=== PATIENT | male | born 1940 | race Caucasian/White ===

== ENCOUNTER 2020-05-12 07:41 | Day surgery (SDC) | payer MEDICARE, BC ==
[~2020-05-12 07:41] MED LIST: Bupivacaine 0.5% 10 ML SDV ONE; Heparin Sodium 100 Units/ML 3 ML Syringe ONE; Lactated Ringers 1,000 ML IV SCH; ceFAZolin 2 GM in Premix Bag 1 BAG IV SCH
--- NOTE | 2020-05-12 08:20 | PCM.PREANE ---
Preanesthetic Assessment - Anesthesia/Transfusion/Family Hx Anesthesia History: Prior Anesthesia Without Reaction Family History of Anesthesia Reaction: No Transfusion History: No Prior Transfusion(s) Intubation History: Unknown - Review of Systems General: No Symptoms Pulmonary: No Symptoms Cardiovascular: No Symptoms Gastrointestinal: No Symptoms Neurological: No Symptoms Other: Reports: None - Physical Assessment Vital Signs: Last Vital Signs Temp 36.3 C 05/12/20 07:57 Pulse 58 L 05/12/20 07:57 Resp 16 05/12/20 07:57 BP 128/69 05/12/20 07:57 Pulse Ox 94 L 05/12/20 07:57 Height: 6 ft 1 in Weight: 83.915 kg ASA Class: 3 Mental Status: Alert & Oriented x3 Airway Class: Mallampati = 2 Dentition: Reports: Normal Dentition, Kennett(s) (multiple crowns including upper front) Thyro-Mental Finger Breadths: 3 Mouth Opening Finger Breadths: 3 ROM/Head Extension: Limited/Partial Lungs: Normal Respiratory Effort, Decreased Breath Sounds Cardiovascular: Regular Rate, Regular Rhythm - Allergies Allergies/Adverse Reactions: Allergies Allergy/AdvReac Type Severity Reaction Status Date / Time No Known Allergies Allergy Verified 05/12/20 08:15 - Blood Blood Available: No - Anesthesia Plan Pre-Op Medication Ordered: None - Acknowledgements Anesthesia Type Planned: General Anesthesia Pt an Appropriate Candidate for the Planned Anesthesia: Yes Alternatives and Risks of Anesthesia Discussed w Pt/Guardian: Yes Pt/Guardian Understands and Agrees with Anesthesia Plan: Yes PreAnesthesia Questionnaire HEENT History: Reports: Impaired Vision Other HEENT History: wears glasses Cardiovascular History: Reports: High Cholesterol, Hypertension Respiratory History: Reports: COPD Gastrointestinal History: Reports: None Genitourinary History: Reports: None Musculoskeletal History: Reports: Arthritis Neurological History: Reports: None Psychiatric History: Reports: Depression Endocrine/Metabolic History: Reports: None Hematologic History: Reports: None Immunologic History: Reports: None Oncologic (Cancer) History: Reports: Hodgkin's Lymphoma Dermatologic History: Reports: Psoriasis - Infectious Disease History Infectious Disease History: Reports: Other (See Below) Other Infectious Disease History: tested positive for COVID in 2019 with pneumonia - didn't need oxygen therapy - Past Surgical History Head Surgeries/Procedures: Reports: None HEENT Surgical History: Reports: Cataract Surgery, Tonsillectomy Other HEENT Surgeries/Procedures: both eyes Cardiovascular Surgical History: Reports: None GI Surgical History: Reports: None Male Surgical History: Reports: None Endocrine Surgical History: Reports: None Musculoskeletal Surgical History: Reports: Other (See Below) Other Musculoskeletal Surgeries/Procedures:: had lower back surgery aprox. 15 yrs ago Oncologic Surgical History: Reports: Other (See Below) Other Oncologic Surgeries/Procedures: had a cervical lymph node biopsy - SUBSTANCE USE Tobacco Use Status *Q: Former Tobacco User - HOME MEDS Home Medications: Home Meds Ascorbate Calcium [Vitamin C] 1 tab PO ASDIRECTED 05/08/20 [History] Aspirin 1 tab PO ASDIRECTED 05/08/20 [History] Fluticasone Propionate [Flovent] 1 spray LLOYD ASDIRECTED 05/08/20 [History] Fluticasone/Umeclidin/Vilanter [Trelegy Ellipta 100-62.5-25] 1 dose INH ASDIRECTED 05/08/20 [History] Lysine HCl [l-Lysine] 1 tab PO ASDIRECTED 05/08/20 [History] Metoprolol Succinate 1 tab PO ASDIRECTED 05/08/20 [History] Simvastatin 1 tab PO DAILY 05/08/20 [History] - CURRENT (IN HOUSE) MEDS Current Meds: Current Medications Cefazolin Sodium/Dextrose 2 gm (/ Premix) 50 mls @ 100 mls/hr IV ONETIME NEGRITA Lactated Ringer's (Ringers, Lactated) 1,000 mls @ 125 mls/hr IV ASDIRECTED NEGRITA Last Admin: 05/12/20 08:04 Dose: 125 mls/hr Documented by: Discontinued Medications Bupivacaine HCl (Sensorcaine-Mpf 0.5%) Confirm Administered Dose 10 ml .ROUTE .STK-MED ONE Stop: 05/12/20 07:20 Heparin Sodium (Porcine) (Heparin Lock Flush 100 Units/Ml) Confirm Administered Dose 900 unit .ROUTE .STK-MED ONE Stop: 05/12/20 07:20 Lidocaine HCl (Xylocaine-Mpf 1%) Confirm Administered Dose 10 ml .ROUTE .STK-MED ONE Stop: 05/12/20 07:20
[2020-05-12] MEDS ORDERED: fentaNYL 100 MCG/2 ML SDV ONE (08:35)
[2020-05-12] MEDS ORDERED: Propofol 200 MG/20 ML SDV ONE ×4 (08:35→10:54)
[2020-05-12] MEDS ORDERED: ceFAZolin/Dextrose,Iso-Osmotic 2 GM/50 ML Duplex Bag (Premix) IV ONE (09:43)
[2020-05-12] MEDS ORDERED: Acetaminophen/HYDROcodone 325-10 MG Tab PO PRN (11:36)
--- NOTE | 2020-05-12 11:40 | PCM.OPNOTE ---
- General Post-Op/Procedure Note Date of Surgery/Procedure: 05/12/20 Operative Procedure(s): Placement of Bard port via left cephalic vein approach Pre Op Diagnosis: Hodgkin's lymphoma, both above and below the diaphragm Post-Op Diagnosis: Same Anesthesia Technique: Local, MAC (ASA III) Primary Surgeon: Alec Cui Condition: Good Free Text/Narrative:: DICTATION 229257 CPT CODE 13077 Post insertion chest x-ray shows good placement of the catheter in the superior vena cava.
[2020-05-12] MEDS ORDERED: Lactated Ringers 1,000 ML IV SCH (11:45)
--- NOTE | 2020-05-12 11:56 | CR ---
Indication: Port placement Technique: Chest 1 view Comparison: None. Findings/Impression: Cardiovascular and mediastinum: Left-sided port catheter is present and is in satisfactory position with the distal tip in the mid SVC. Heart size and pulmonary vasculature are normal. Lungs and pleural space: Lungs are clear. No sign of infiltrate or mass. No sign of pleural effusion. No pneumothorax. Bones and soft tissues: No acute findings. Dictated by Hemal Casillas MD @ May 12 2020 11:54AM Signed by Dr. Hemal Casillas @ May 12 2020 11:55AM
[2020-05-12] MEDS ORDERED: Heparin Sodium 100 Units/ML 3 ML Syringe ONE (12:18)
--- NOTE | 2020-05-12 12:53 | PCM48HPAN ---
Post Anesthesia Note - EVALUATION WITHIN 48HRS OF ANESTHETIC Vital Signs in Normal Range: Yes Patient Participated in Evaluation: Yes Respiratory Function Stable: Yes Airway Patent: Yes Cardiovascular Function Stable: Yes Hydration Status Stable: Yes Pain Control Satisfactory: Yes Nausea and Vomiting Control Satisfactory: Yes Mental Status Recovered: Yes Vital Signs: Last Vital Signs Temp 36.1 C 05/12/20 11:16 Pulse 56 L 05/12/20 11:43 Resp 15 05/12/20 11:43 BP 106/55 L 05/12/20 11:43 Pulse Ox 91 L 05/12/20 11:43 - COMMENTS/OBSERVATIONS Free Text/Narrative:: No anesthesia problems
--- NOTE | 2020-05-12 12:54 | PCM.POSTAN ---
POST ANESTHESIA ASSESSMENT - MENTAL STATUS Mental Status: Alert, Oriented - VITAL SIGNS Vital Signs: Last Vital Signs Temp 36.1 C 05/12/20 11:16 Pulse 56 L 05/12/20 11:43 Resp 15 05/12/20 11:43 BP 106/55 L 05/12/20 11:43 Pulse Ox 91 L 05/12/20 11:43 - RESPIRATORY Respiratory Status: Respiratory Rate WNL, Airway Patent, O2 Saturation Stable - CARDIOVASCULAR CV Status: Pulse Rate WNL, Blood Pressure Stable - GASTROINTESTINAL GI Status: No Symptoms - PAIN Pain Score: 0 - POST OP HYDRATION Hydration Status: Adequate & Stable - OBSERVATIONS Free Text/Narrative:: No anesthesia problems
--- NOTE | 2020-05-12 15:49 | CR ---
INDICATION: Port placement TECHNIQUE: Intraoperative C-arm fluoroscopy. IMPRESSION: Intraoperative C-arm fluoroscopy was provided. Fluoroscopy time 50 seconds. Two images were captured. Dictated by Stef Townsend MD @ May 12 2020 3:46PM Signed by Dr. Stef Townsend @ May 12 2020 3:47PM
--- NOTE | 2020-05-13 10:52 | OR ---
SURGEON: Alec Cui M.D. DATE OF PROCEDURE: 05/12/2020 OPERATION PERFORMED: Placement of Bard port via left cephalic vein. PRIMARY SURGEON: Alec Cui M.D. ANESTHESIA: Local MAC. ASA CLASSIFICATION: III. PREOPERATIVE DIAGNOSIS: Hodgkin lymphoma. POSTOPERATIVE DIAGNOSIS: Hodgkin lymphoma. ESTIMATED BLOOD LOSS: 10 mL. INTRAOPERATIVE FLUID REPLACEMENT: 700 mL of crystalloid. DESCRIPTION OF PROCEDURE: The patient was taken to the operating room, placed on the operating table in the supine position. Surgical site had been marked prior to the patient entering the operating room. Time-out was called for appropriate identification of the patient and procedure. The surgical site was prepped with ChloraPrep, and sterile drapes were applied. It should be noted that fluoroscopy was used during this procedure. Incision was marked out in the left deltopectoral groove and infiltrated with 1% Xylocaine and 0.5% Marcaine solution. Skin incision was made and deepened through the subcutaneous tissue obtaining hemostasis with the use of electrocautery. Dissection was carried down to the left cephalic vein, which was of great quality. The vein was then encircled, ligated distally with 2-0 Vicryl and with 2 extra ties placed proximally. Once that was accomplished, a small venotomy was made, and the heparin flushed catheter was placed fluoroscopically into the superior vena cava. The 2 proximal ties of 2-0 Vicryl were then secured to keep the catheter from migrating. The catheter was positioned at 26 cm from the venotomy site. Appropriate site on the chest wall was then chosen for placement of the port. The skin was again infiltrated with 1% Xylocaine and 0.5% Marcaine solution. Skin incision was made and again using electrocautery deepened to the pectoralis major fascia. Subcutaneous pocket was then made with blunt dissection. The catheter was then passed with the use of the trocar from the deltopectoral incision to the chest wall incision. Care was taken to avoid an air embolus. Once that was accomplished, the port which had been flushed with heparinized saline was brought to the operating table. The catheter was cut to appropriate length, and the catheter and port were assembled, and the lock secured. The catheter was then aspirated and irrigated with heparinized saline. There was good flow and no resistance to injection. Wounds were inspected for hemostasis, and small bleeding sites were electrocoagulated. Both incisions were closed in 2 layers approximating the subcutaneous tissue with 3-0 Vicryl and the skin with subcuticular 4-0 Monocryl. Both incisions were Steri-Stripped and dressed with sterile Tegaderm pads. Sponge, needle, and instrument counts were all correct. The patient tolerated the procedure well and was taken to recovery room in stable condition. Post insertion chest x-ray is pending. BEN / VINI /[id number]
== END 2020-05-12 12:53 | disposition home or self-care (01) ==
LOC: MW.SDS 07:41
PROVIDERS: ATTEND Surgery
DX: C81.90 Hodgkin lymphoma, unspecified, unspecified site (principal); J44.9 Chronic obstructive pulmonary disease, unspecified; E78.00 Pure hypercholesterolemia, unspecified; I10 Essential (primary) hypertension; Z79.82 Long term (current) use of aspirin; Z79.899 Other long term (current) drug therapy; Z87.891 Personal history of nicotine dependence; Z90.89 Acquired absence of other organs
CPT/HCPCS: 36561; 71045; 76000; C1788; J0690; J1642; J2001; J2704; J3010; J3490; J7120; 00400

== ENCOUNTER 2022-01-04 06:29 | Day surgery (SDC) | payer MEDICARE, BC ==
[~2022-01-04 06:29] MED LIST changes: -Bupivacaine 0.5% 10 ML SDV ONE; -Heparin Sodium 100 Units/ML 3 ML Syringe ONE; -ceFAZolin 2 GM in Premix Bag 1 BAG IV SCH
[2022-01-04] MEDS ORDERED: Dexmedetomidine 200 MCG/2 ML SDV ONE (07:23)
[2022-01-04] MEDS ORDERED: Propofol 200 MG/20 ML SDV ONE (07:24)
[2022-01-04] MEDS ORDERED: Water For Injection, Sterile 20 ML ONE (07:24)
[2022-01-04] MEDS ORDERED: fentaNYL 100 MCG/2 ML SDV ONE (07:24)
[2022-01-04] MEDS ORDERED: Lidocaine 1% 20 ML MDV ONE (07:29)
[2022-01-04] MEDS ORDERED: Bupivacaine 0.5% 30 ML SDV ONE (07:29)
[2022-01-04] MEDS ORDERED: ePHEDrine 50 MG/ML SDV ONE (08:09)
[2022-01-04] MEDS ORDERED: Ketorolac 30 MG/ML SDV ONE (08:26)
[2022-01-04] MEDS ORDERED: Lactated Ringers 1,000 ML IV SCH (08:45)
== END 2022-01-04 09:35 | disposition home or self-care (01) ==
LOC: MW.SDS 06:29
PROVIDERS: ATTEND Surgery
DX: Z45.2 Encounter for adjustment and management of vascular access device (principal); J44.9 Chronic obstructive pulmonary disease, unspecified; G62.0 Drug-induced polyneuropathy; I10 Essential (primary) hypertension; E78.5 Hyperlipidemia, unspecified; Z85.71 Personal history of Hodgkin lymphoma; Z86.16 Personal history of COVID-19; Z79.899 Other long term (current) drug therapy; Z98.890 Other specified postprocedural states; Z87.891 Personal history of nicotine dependence
CPT/HCPCS: 36590; J1885; J2704; J3010; J3490; J7120; 00400; 88300; 99100